=== PATIENT | female | born 1975 | race Caucasian/White ===

== ENCOUNTER → 2017-01-07 | Outpatient (CLI) | payer OTHER ==
--- NOTE | 2017-01-10 11:45 | MM ---
Reason for exam: screening (asymptomatic). History: Family history of breast cancer in paternal aunt at age 50. Taking hormonal contraceptives for 20 years beginning at age 41. Physical Findings: A clinical breast exam by your physician is recommended on an annual basis and results should be correlated with mammographic findings. MG Screening Mammo w CAD Bilateral CC and MLO view(s) were taken. The breast tissue is heterogeneously dense. This may lower the sensitivity of mammography. There is no discrete abnormality. ASSESSMENT: Negative, BI-RAD 1 RECOMMENDATION: Routine screening mammogram of both breasts in 1 year.
== END | disposition home or self-care (01) ==
LOC: RADMAMWWP 13:25
PROVIDERS: ATTEND Obstetrics & Gynecology
DX: Z12.31 Encounter for screening mammogram for malignant neoplasm of breast (principal)

== ENCOUNTER 2018-02-17 11:43 | Inpatient (IN) | payer OTHER ==
[2018-02-17 13:03] LABS: Basophils % (A) 0 %; Eosinophils # (A) 0.7 k/uL (0-0.7); Eosinophils % (A) 3 %; HCT 41.6 % (34.0-46.0); HGB 14.1 gm/dL (11.4-16.0); Lymphocytes # (A) 0.4 k/uL (1.0-4.8); Lymphocytes % (A) 2 %; MCH 32.3 pg (25.0-35.0); MCV 94.9 fL (80.0-100.0); Mean Platelet Volume 7.3; Monocytes # (A) 0.2 k/uL (0-1.0); Monocytes % (A) 1 %; Neutrophils % (A) 94 %; Platelet Count 204 k/uL (150-450); RBC 4.38 m/uL (3.80-5.40); RDW 12.8 % (11.5-15.5); WBC 24.3 k/uL (3.8-10.6)
[2018-02-17] MEDS ORDERED: SODIUM CHLORIDE 0.9% 500 ML 500 ML IV ONE (13:13)
[2018-02-17] MEDS ORDERED: IPRATROPIUM-ALBUTEROL 3 ML NEB INHALATION STA (13:13)
[2018-02-17 13:15] LABS: ALT 22 U/L (9-52); AST 20 U/L (14-36); Alkaline Phosphatase 53 U/L (38-126); Anion Gap 6 mmol/L; Blood Urea Nitrogen 14 mg/dL (7-17); Carbon Dioxide 23 mmol/L (22-30); Chloride 109 mmol/L (98-107); Glucose 114 mg/dL (74-99); Potassium 4.2 mmol/L (3.5-5.1); Sodium 138 mmol/L (137-145); Total Bilirubin 0.9 mg/dL (0.2-1.3); Total Protein 6.6 g/dL (6.3-8.2)
[2018-02-17 13:27] LABS: Creatine Kinase 85 U/L (30-135)
[2018-02-17 13:32] LABS: INR 1.1 (<1.2); Partial Thromboplastin Time 25.3 sec (22.0-30.0); Prothrombin Time 10.4 sec (9.0-12.0)
[2018-02-17 13:39] LABS: Creatine Kinase MB 1.1 ng/mL (0.0-2.4); Troponin I <0.012 ng/mL (0.000-0.034)
--- NOTE | 2018-02-17 13:57 | XR ---
EXAMINATION TYPE: XR chest 2V DATE OF EXAM: 02/17/2018 COMPARISON: NONE HISTORY: Cough,SOB, and weakness. TECHNIQUE: Frontal and lateral views of the chest are obtained. FINDINGS: There is no focal air space opacity, pleural effusion, or pneumothorax seen. The cardiac silhouette size is within normal limits. The osseous structures are intact. IMPRESSION: No acute cardiopulmonary process.
[2018-02-17 14:03] LABS: Appearance,Urine Cloudy (Clear); Bilirubin,Urine Negative (Negative); Blood,Urine Moderate (Negative); Color,Urine Dark Orange; Glucose,Urine (UA) Negative (Negative); Ketones,Urine 1+ (Negative); Leukocyte Esterase,Urine Moderate (Negative); Mucus,Urine Many /hpf; Nitrite,Urine Negative (Negative); PH, Urine 5.5 (5.0-8.0); Protein,Urine 1+ (Negative); RBC,Urine 35 /hpf (0-5); Squamous Epithelial Cell,Urine 1 /hpf (0-4); Urobilinogen,Urine <2.0 mg/dL (<2.0); WBC,Urine 37 /hpf (0-5)
--- NOTE | 2018-02-17 14:51 | CT ---
EXAMINATION TYPE: CT chest angio for PE DATE OF EXAM: 02/17/2018 COMPARISON: None HISTORY: Difficulty breathing CT DLP: 228.6 mGycm CONTRAST: CT chest with contrast and 3D reconstruction with MIP imaging is performed with IV Contrast, patient injected with 100 mL of Isovue 370. Contrast-enhanced CT of the chest was performed through the course of the pulmonary arteries with mihai g and mediastinal window settings submitted. 3D reconstruction with MIP imaging was also performed. PULMONARY ARTERIES: The pulmonary arteries and their major tributaries are patent. I do not see ulises dence for sizable filling defect to suggest pulmonary embolic process. LUNGS: The lungs are clear and free of airspace infiltrate. Scattered nonspecific groundglass infiltr ates noted which may reflect acute inflammatory process. No evidence for atelectasis. No pulmonary nodule or mass is detected. No pleural effusion. MEDIASTINUM: Thoracic aorta is of normal caliber,however, evaluation is limited given timing of the contrast bolus. If there is concern for thoracic aortic pathology consider BRANDY. Correlate clinicall y . The heart is not enlarged. No evidence for mediastinal mass. No mediastinal lymph nodes greater than 1cm. HILAR STRUCTURES: No evidence for mass. No hilar lymph nodes greater than 1 cm. UPPER ABDOMEN: No significant abnormality is seen. IMPRESSION: 1. No evidence for Pulmonary embolism at this time. 2.Scattered nonspecific groundglass infiltrates noted which may reflect acute inflammatory process.
[2018-02-17] MEDS ORDERED: LEVOFLOXACIN 750MG-D5W PMX 750 MG in DEXTROSE/WATER 1 150ML.BAG IVPB STA (14:57)
[2018-02-17] MEDS ORDERED: methylPREDNISolone SOD SUCCI 125 MG/2 ML VIAL IV STA (15:03)
--- NOTE | 2018-02-17 15:39 | ED ---
General Adult HPI - General Chief complaint: Shortness of Breath Stated complaint: Sob Time Seen by Provider: 02/17/18 12:15 Source: patient, RN notes reviewed Mode of arrival: ambulatory Limitations: no limitations - History of Present Illness Initial comments: This is a 42-year-old female who was seen at [facility] this morning and was diagnosed with urinary tract infection given Rocephin. Patient states shortly after she was given Rocephin she became short of breath continues to be short of breath that is why she comes in today. Patient denies any fever chills or cough. Patient denies any chest pain palpitations. Patient denies any syncopal episode or near syncopal episode. Patient denies being dizzy. Patient denies headache patient denies any numbness weakness. Patient does complain of dysuria. Patient denies any abdominal pain. Patient denies any nausea vomiting or diarrhea. Patient denies any calf pain or leg swelling. Patient denies being on any control. - Related Data Home Medications Medication Instructions Recorded Confirmed Dextroamphetamine/Amphetamine 30 mg PO DAILY@1700 02/17/18 02/17/18 [Adderall Xr] Ibuprofen [Motrin Ib] 600 mg PO Q6H PRN 02/17/18 02/17/18 Allergies Allergy/AdvReac Type Severity Reaction Status Date / Time No Known Allergies Allergy Verified 02/17/18 14:13 Review of Systems ROS Statement: Those systems with pertinent positive or pertinent negative responses have been documented in the HPI. ROS Other: All systems not noted in ROS Statement are negative. Past Medical History Past Medical History: No Reported History History of Any Multi-Drug Resistant Organisms: None Reported Past Surgical History: Section Past Psychological History: No Psychological Hx Reported Smoking Status: Current every day smoker Past Alcohol Use History: Occasional Past Drug Use History: Marijuana General Exam - General Exam Comments Initial Comments: GENERAL: Patient is well-developed and well-nourished. Patient is nontoxic and well- hydrated and is in mild distress. ENT: Neck is soft and supple. No significant lymphadenopathy is noted. Oropharynx is clear. Moist mucous membranes. Neck has full range of motion without eliciting any pain. EYES: The sclera were anicteric and conjunctiva were pink and moist. Extraocular movements were intact and pupils were equal round and reactive to light. Eyelids were unremarkable. PULMONARY: Unlabored respirations. Good breath sounds bilaterally. No audible rales rhonchi or wheezing was noted. CARDIOVASCULAR: There is a regular rate and rhythm without any murmurs gallops or rubs. ABDOMEN: Soft and nontender with normal bowel sounds. No palpable organomegaly was noted. There is no palpable pulsatile mass. SKIN: Skin is clear with no lesions or rashes and otherwise unremarkable. NEUROLOGIC: Patient is alert and oriented x3. Cranial nerves II through XII are grossly intact. Motor and sensory are also intact. Normal speech, volume and content. Symmetrical smile. MUSCULOSKELETAL: Normal extremities with adequate strength and full range of motion. No lower extremity swelling or edema. No calf tenderness. LYMPHATICS: No significant lymphadenopathy is noted PSYCHIATRIC: Normal psychiatric evaluation. Limitations: no limitations Course Vital Signs 02/17/18 02/17/18 02/17/18 12:15 12:18 13:06 Temperature 98.5 F Pulse Rate 76 Respiratory 16 20 Rate Blood Pressure 101/61 O2 Sat by Pulse 94 L 96 Oximetry 02/17/18 02/17/18 02/17/18 13:08 13:30 13:37 Temperature 98.1 F Pulse Rate 78 77 Respiratory 18 Rate Blood Pressure 113/78 O2 Sat by Pulse 98 98 Oximetry 02/17/18 13:39 Temperature Pulse Rate 83 Respiratory Rate Blood Pressure O2 Sat by Pulse Oximetry Medical Decision Making - Medical Decision Making X-ray showed no acute abnormality. Patient had an elevated d-dimer so I got a CT of the chest it did show a diffuse groundglass appearance consistent with pneumonitis. I was thinking this could be caused from the Rocephin and I started the patient on steroids. I also gave the patient Levaquin for the urinary tract infection. I called Dr. Jauregui he agreed to admit the patient admitted the patient I continue the steroids. And breathing treatments Levaquin I also gave the patient a dose of Diflucan and gave her a nicotine patch. I admitted the patient I wrote admitting orders. - Lab Data Result diagrams: 02/17/18 12:43 02/17/18 12:43 Lab Results 02/17/18 02/17/18 02/17/18 Range/Units 12:43 12:43 12:43 WBC 24.3 H (3.8-10.6) k/uL RBC 4.38 (3.80-5.40) m/uL Hgb 14.1 (11.4-16.0) gm/dL Hct 41.6 (34.0-46.0) % MCV 94.9 (80.0-100.0) fL MCH 32.3 (25.0-35.0) pg MCHC 34.0 (31.0-37.0) g/dL RDW 12.8 (11.5-15.5) % Plt Count 204 (150-450) k/uL Neutrophils % 94 % Lymphocytes % 2 % Monocytes % 1 % Eosinophils % 3 % Basophils % 0 % Neutrophils # 23.0 H (1.3-7.7) k/uL Lymphocytes # 0.4 L (1.0-4.8) k/uL Monocytes # 0.2 (0-1.0) k/uL Eosinophils # 0.7 (0-0.7) k/uL Basophils # 0.0 (0-0.2) k/uL PT (9.0-12.0) sec INR (<1.2) APTT (22.0-30.0) sec D-Dimer (<0.60) mg/L FEU Sodium 138 (137-145) mmol/L Potassium 4.2 (3.5-5.1) mmol/L Chloride 109 H (98-107) mmol/L Carbon Dioxide 23 (22-30) mmol/L Anion Gap 6 mmol/L BUN 14 (7-17) mg/dL Creatinine 0.77 (0.52-1.04) mg/dL Est GFR (CKD-EPI)AfAm >90 (>60 ml/min/1.73 sqM) Est GFR (CKD-EPI)NonAf >90 (>60 ml/min/1.73 sqM) Glucose 114 H (74-99) mg/dL Calcium 9.0 (8.4-10.2) mg/dL Total Bilirubin 0.9 (0.2-1.3) mg/dL AST 20 (14-36) U/L ALT 22 (9-52) U/L Alkaline Phosphatase 53 (38-126) U/L Total Creatine Kinase 85 (30-135) U/L CK-MB (CK-2) 1.1 (0.0-2.4) ng/mL CK-MB (CK-2) Rel Index 1.3 Troponin I <0.012 (0.000-0.034) ng/mL NT-Pro-B Natriuret Pep pg/mL Total Protein 6.6 (6.3-8.2) g/dL Albumin 4.0 (3.5-5.0) g/dL Urine Color Urine Appearance (Clear) Urine pH (5.0-8.0) Ur Specific [place] (1.001-1.035) Urine Protein (Negative) Urine Glucose (UA) (Negative) Urine Ketones (Negative) Urine Blood (Negative) Urine Nitrite (Negative) Urine Bilirubin (Negative) Urine Urobilinogen (<2.0) mg/dL Ur Leukocyte Esterase (Negative) Urine RBC (0-5) /hpf Urine WBC (0-5) /hpf Ur Squamous Epith Cells (0-4) /hpf Urine Mucus (None) /hpf 02/17/18 02/17/18 02/17/18 Range/Units 12:43 12:43 12:43 WBC (3.8-10.6) k/uL RBC (3.80-5.40) m/uL Hgb (11.4-16.0) gm/dL Hct (34.0-46.0) % MCV (80.0-100.0) fL MCH (25.0-35.0) pg MCHC (31.0-37.0) g/dL RDW (11.5-15.5) % Plt Count (150-450) k/uL Neutrophils % % Lymphocytes % % Monocytes % % Eosinophils % % Basophils % % Neutrophils # (1.3-7.7) k/uL Lymphocytes # (1.0-4.8) k/uL Monocytes # (0-1.0) k/uL Eosinophils # (0-0.7) k/uL Basophils # (0-0.2) k/uL PT 10.4 (9.0-12.0) sec INR 1.1 (<1.2) APTT 25.3 (22.0-30.0) sec D-Dimer 0.65 H (<0.60) mg/L FEU Sodium (137-145) mmol/L Potassium (3.5-5.1) mmol/L Chloride (98-107) mmol/L Carbon Dioxide (22-30) mmol/L Anion Gap mmol/L BUN (7-17) mg/dL Creatinine (0.52-1.04) mg/dL Est GFR (CKD-EPI)AfAm (>60 ml/min/1.73 sqM) Est GFR (CKD-EPI)NonAf (>60 ml/min/1.73 sqM) Glucose (74-99) mg/dL Calcium (8.4-10.2) mg/dL Total Bilirubin (0.2-1.3) mg/dL AST (14-36) U/L ALT (9-52) U/L Alkaline Phosphatase (38-126) U/L Total Creatine Kinase (30-135) U/L CK-MB (CK-2) (0.0-2.4) ng/mL CK-MB (CK-2) Rel Index Troponin I (0.000-0.034) ng/mL NT-Pro-B Natriuret Pep 280 pg/mL Total Protein (6.3-8.2) g/dL Albumin (3.5-5.0) g/dL Urine Color Urine Appearance (Clear) Urine pH (5.0-8.0) Ur Specific [place] (1.001-1.035) Urine Protein (Negative) Urine Glucose (UA) (Negative) Urine Ketones (Negative) Urine Blood (Negative) Urine Nitrite (Negative) Urine Bilirubin (Negative) Urine Urobilinogen (<2.0) mg/dL Ur Leukocyte Esterase (Negative) Urine RBC (0-5) /hpf Urine WBC (0-5) /hpf Ur Squamous Epith Cells (0-4) /hpf Urine Mucus (None) /hpf 02/17/18 Range/Units 13:30 WBC (3.8-10.6) k/uL RBC (3.80-5.40) m/uL Hgb (11.4-16.0) gm/dL Hct (34.0-46.0) % MCV (80.0-100.0) fL MCH (25.0-35.0) pg MCHC (31.0-37.0) g/dL RDW (11.5-15.5) % Plt Count (150-450) k/uL Neutrophils % % Lymphocytes % % Monocytes % % Eosinophils % % Basophils % % Neutrophils # (1.3-7.7) k/uL Lymphocytes # (1.0-4.8) k/uL Monocytes # (0-1.0) k/uL Eosinophils # (0-0.7) k/uL Basophils # (0-0.2) k/uL PT (9.0-12.0) sec INR (<1.2) APTT (22.0-30.0) sec D-Dimer (<0.60) mg/L FEU Sodium (137-145) mmol/L Potassium (3.5-5.1) mmol/L Chloride (98-107) mmol/L Carbon Dioxide (22-30) mmol/L Anion Gap mmol/L BUN (7-17) mg/dL Creatinine (0.52-1.04) mg/dL Est GFR (CKD-EPI)AfAm (>60 ml/min/1.73 sqM) Est GFR (CKD-EPI)NonAf (>60 ml/min/1.73 sqM) Glucose (74-99) mg/dL Calcium (8.4-10.2) mg/dL Total Bilirubin (0.2-1.3) mg/dL AST (14-36) U/L ALT (9-52) U/L Alkaline Phosphatase (38-126) U/L Total Creatine Kinase (30-135) U/L CK-MB (CK-2) (0.0-2.4) ng/mL CK-MB (CK-2) Rel Index Troponin I (0.000-0.034) ng/mL NT-Pro-B Natriuret Pep pg/mL Total Protein (6.3-8.2) g/dL Albumin (3.5-5.0) g/dL Urine Color Dark [place] Urine Appearance Cloudy H (Clear) Urine pH 5.5 (5.0-8.0) Ur Specific [place] 1.020 (1.001-1.035) Urine Protein 1+ H (Negative) Urine Glucose (UA) Negative (Negative) Urine Ketones 1+ H (Negative) Urine Blood Moderate H (Negative) Urine Nitrite Negative (Negative) Urine Bilirubin Negative (Negative) Urine Urobilinogen <2.0 (<2.0) mg/dL Ur Leukocyte Esterase Moderate H (Negative) Urine RBC 35 H (0-5) /hpf Urine WBC 37 H (0-5) /hpf Ur Squamous Epith Cells 1 (0-4) /hpf Urine Mucus Many H (None) /hpf Disposition Clinical Impression: Allergic pneumonitis, Urinary tract infection Disposition: ADMITTED IP TO THIS HOSP Referrals: Joe Jauregui MD [Primary Care Provider] - 1-2 days Time of Disposition: 15:38
[2018-02-17] MEDS ORDERED: FLUCONAZOLE 150 MG TAB PO STA (15:40)
[2018-02-17] MEDS ORDERED: IPRATROPIUM-ALBUTEROL 3 ML NEB INHALATION PRN (15:40)
[2018-02-17] MEDS: methylPREDNISolone SOD SUCCI 125 MG/2 ML VIAL IV SCH (18:45)
[2018-02-17] MEDS: NICOTINE 21MG/24HR PATCH TRANSDERM SCH (20:35)
[2018-02-17] MEDS: ACETAMINOPHEN TAB 325 MG TAB PO PRN (21:57)
[2018-02-18] MEDS: methylPREDNISolone SOD SUCCI 125 MG/2 ML VIAL IV SCH ×5 (00:04→23:50)
[2018-02-18] MEDS: SODIUM CHLORIDE 0.9% 1,000 ML IV ONE ×2 (00:13→21:14)
[2018-02-18] MEDS: NICOTINE 21MG/24HR PATCH TRANSDERM SCH (08:35)
[2018-02-18] MEDS ORDERED: NICOTINE 21MG/24HR PATCH TRANSDERM SCH (09:00)
[2018-02-18] MEDS ORDERED: LEVOFLOXACIN 750MG-D5W PMX 750 MG in DEXTROSE/WATER 1 150ML.BAG IVPB SCH (15:00)
[2018-02-18] MEDS: ACETAMINOPHEN TAB 325 MG TAB PO PRN ×2 (17:08→22:22)
[2018-02-19 00:06] VITALS: TEMP 98
[2018-02-19] MEDS: methylPREDNISolone SOD SUCCI 125 MG/2 ML VIAL IV SCH (06:19)
[2018-02-19] MEDS: NICOTINE 21MG/24HR PATCH TRANSDERM SCH (07:59)
[2018-02-19 08:30] VITALS: BP 121/65; PULSE 52; RESP 18
[2018-02-19 08:33] LABS: Anion Gap 5 mmol/L; Blood Urea Nitrogen 23 mg/dL (7-17); Calcium 9.1 mg/dL (8.4-10.2); Carbon Dioxide 22 mmol/L (22-30); Chloride 114 mmol/L (98-107); Glucose 133 mg/dL (74-99); Potassium 4.8 mmol/L (3.5-5.1); Sodium 141 mmol/L (137-145)
[2018-02-19 09:08] LABS: Basophils % (A) 0 %; Eosinophils % (A) 0 %; HCT 37.5 % (34.0-46.0); HGB 11.8 gm/dL (11.4-16.0); Lymphocytes # (A) 1.2 k/uL (1.0-4.8); Lymphocytes % (A) 5 %; MCHC 31.5 g/dL (31.0-37.0); MCV 98.2 fL (80.0-100.0); Mean Platelet Volume 7.7; Monocytes # (A) 0.4 k/uL (0-1.0); Monocytes % (A) 2 %; Neutrophils # (A) 21.7 k/uL (1.3-7.7); Neutrophils % (A) 93 %; Platelet Count 234 k/uL (150-450); RBC 3.82 m/uL (3.80-5.40); RDW 13.1 % (11.5-15.5); WBC 23.4 k/uL (3.8-10.6)
--- NOTE | 2018-02-19 09:46 | P.HPIM ---
History of Present Illness H&P Date: 02/18/18 This is a 42-year-old female who was seen at [facility] this morning and was diagnosed with urinary tract infection given Rocephin. Patient states shortly after she was given Rocephin she became short of breath continues to be short of breath that is why she comes in today. Patient denies any fever chills or cough. Patient denies any chest pain palpitations. Patient denies any syncopal episode or near syncopal episode. Patient denies being dizzy. Patient denies headache patient denies any numbness weakness. Patient does complain of dysuria. Patient denies any abdominal pain. Patient denies any nausea vomiting or diarrhea. Patient denies any calf pain or leg swelling. Patient denies being on any control. Review of Systems Constitutional: Denies chills, Denies fever Eyes: denies blurred vision Ears, nose, mouth and throat: Denies nasal congestion, Denies sore throat Cardiovascular: Reports shortness of breath, Denies chest pain, Denies rapid heart beat Respiratory: Reports wheezing, Denies cough, Denies hemoptysis Gastrointestinal: Denies abdominal pain, Denies nausea, Denies vomiting Genitourinary: Reports dysuria, Denies flank pain, Denies hematuria Musculoskeletal: Reports as per HPI Integumentary: Denies darkening of skin, Denies rash Neurological: Denies confusion, Denies headaches, Denies visual changes Endocrine: Denies cold intolerance, Denies heat intolerance, Denies polydipsia, Denies polyuria Hematologic/Lymphatic: Denies easy bruising, Denies lymphedema Allergic/Immunologic: Denies angioedema Past Medical History Past Medical History: No Reported History History of Any Multi-Drug Resistant Organisms: None Reported Past Surgical History: Section Additional Past Anesthesia/Blood Transfusion Reaction / Comment(s): NEVER HAD BLOOD TRANSFUSION Past Psychological History: No Psychological Hx Reported Smoking Status: Current every day smoker Past Alcohol Use History: Occasional Past Drug Use History: Marijuana - Past Family History Mother Family Medical History: COPD Father Family Medical History: Prostate Disorder Medications and Allergies Home Medications Medication Instructions Recorded Confirmed Type Dextroamphetamine/Amphetamine 30 mg PO DAILY@1700 02/17/18 02/17/18 History [Adderall Xr] Ibuprofen [Motrin Ib] 600 mg PO Q6H PRN 02/17/18 02/17/18 History Allergies Allergy/AdvReac Type Severity Reaction Status Date / Time ceftriaxone [From Rocephin] AdvReac Unknown Verified 02/17/18 18:30 Physical Exam Vitals: Vital Signs Temp Pulse Pulse Resp BP BP Pulse Ox 02/18/18 08:15 98.1 F 75 16 112/71 98 02/18/18 00:00 80 16 02/17/18 23:00 98.1 F 79 16 107/62 96 02/17/18 21:57 98.4 F 80 16 98/61 96 02/17/18 20:51 76 16 02/17/18 17:10 98.0 F 76 16 117/65 95 02/17/18 15:39 99.2 F 69 18 111/71 97 02/17/18 14:00 84 12 113/77 98 02/17/18 13:39 83 02/17/18 13:37 77 18 113/78 98 02/17/18 13:30 78 02/17/18 13:08 98.1 F 98 02/17/18 13:06 20 02/17/18 12:18 101/61 96 02/17/18 12:15 98.5 F 76 16 94 L Intake and Output 02/17/18 02/18/18 02/18/18 22:59 06:59 14:59 Intake Total 600 Output Total 200 400 Balance 400 -400 Intake: Oral 600 Output: Urine 200 400 Other: Voiding Method Toilet Toilet # Voids 1 450 Weight 66.8 kg - Constitutional General appearance: Present: average body habitus, cooperative, no acute distress - EENT Eyes: Present: anicteric sclerae, EOMI, PERRLA, normal appearance ENT: Present: hearing grossly normal, normal oropharynx Ears: bilateral: normal - Neck Neck: Present: normal ROM. Absent: lymphadenopathy, rigidity, thyromegaly Carotids: negative: bruit present Thyroid: bilateral: normal size, negative: enlarged, nodule - Respiratory Respiratory: bilateral: wheezing - Cardiovascular Rhythm: regular Heart sounds: normal: S1, S2 Abnormal Heart Sounds: Absent: systolic murmur, diastolic murmur - Gastrointestinal General gastrointestinal: Present: normal bowel sounds, soft. Absent: distended , organomegaly, tenderness - Genitourinary Genitourinary Comment(s): deferred - Integumentary Integumentary: Present: normal turgor. Absent: jaundiced, rash, ulcer - Neurologic Neurologic: Present: CNII-XII intact. Absent: focal deficits - Musculoskeletal Musculoskeletal: Present: gait normal, strength equal bilaterally - Psychiatric Psychiatric: Present: A&O x's 3, appropriate affect, intact judgment & insight Results CBC & Chem 7: 02/19/18 07:52 02/19/18 07:52 Labs: Abnormal Lab Results - Last 24 Hours (Table) 02/17/18 02/17/18 02/17/18 Range/Units 12:43 12:43 12:43 WBC 24.3 H (3.8-10.6) k/uL Neutrophils # 23.0 H (1.3-7.7) k/uL Lymphocytes # 0.4 L (1.0-4.8) k/uL D-Dimer 0.65 H (<0.60) mg/L FEU Chloride 109 H (98-107) mmol/L Glucose 114 H (74-99) mg/dL Urine Appearance (Clear) Urine Protein (Negative) Urine Ketones (Negative) Urine Blood (Negative) Ur Leukocyte Esterase (Negative) Urine RBC (0-5) /hpf Urine WBC (0-5) /hpf Urine Mucus (None) /hpf 02/17/18 Range/Units 13:30 WBC (3.8-10.6) k/uL Neutrophils # (1.3-7.7) k/uL Lymphocytes # (1.0-4.8) k/uL D-Dimer (<0.60) mg/L FEU Chloride (98-107) mmol/L Glucose (74-99) mg/dL Urine Appearance Cloudy H (Clear) Urine Protein 1+ H (Negative) Urine Ketones 1+ H (Negative) Urine Blood Moderate H (Negative) Ur Leukocyte Esterase Moderate H (Negative) Urine RBC 35 H (0-5) /hpf Urine WBC 37 H (0-5) /hpf Urine Mucus Many H (None) /hpf Thrombosis Risk Factor Assmnt - Choose All That Apply Each Factor Represents 1 point: Obesity (BMI >25) Other Risk Factors: No Other congenital or acquired thrombophilia - If yes, enter type in comment: No Thrombosis Risk Factor Assessment Total Risk Factor Score: 1 Thrombosis Risk Factor Assessment Level: Low Risk Assessment and Plan Assessment: 1. Anaphylaxis - Possibly secondary to IV Rocephin used for possible UTI - Patient is started on IV Solu-Medrol 60 mg every 6 hours - We will use Benadryl if patient continues to be short of breath 2. UTI - Patient started on Levaquin 750 mg IV daily - We will continue with current dose of Levaquin till final urine culture report is available 3. ALLERGIC pneumonitis - Levaquin 750 mg IV every 24 hours - We will continue with bronchodilator nebulizer treatment as needed - Solu-Medrol 60 mg IV every 6 hours 4. Tobacco abuse - Counseling done for patient to quit smoking - Nicotine patch 21 MG per 24 hours 5. DVT prophylaxis; early ambulation CODE STATUS; full code Time with Patient: Greater than 30
== END 2018-02-19 11:00 | disposition home or self-care (01) | DRG 916 ==
LOC: EC 11:43 → 6PED 15:39
PROVIDERS: ADMIT Family Medicine; ATTEND Family Medicine
DX: T88.6XXA Anaphylactic reaction due to adverse effect of correct drug or medicament properly administered, initial encounter (principal); J67.8 Hypersensitivity pneumonitis due to other organic dusts; N39.0 Urinary tract infection, site not specified; T36.1X5A Adverse effect of cephalosporins and other beta-lactam antibiotics, initial encounter; F17.210 Nicotine dependence, cigarettes, uncomplicated; Z71.6 Tobacco abuse counseling; Z82.5 Family history of asthma and other chronic lower respiratory diseases; Z79.899 Other long term (current) drug therapy
CPT/HCPCS: 36415; 71046; 71275; 80048; 80053; 81001; 82550; 82553; 83605; 83880; 84484; 85025; 85379; 85610; 85730; 87040; 94640

== ENCOUNTER → 2018-12-27 | Outpatient (CLI) | payer OTHER ==
--- NOTE | 2018-12-27 13:28 | US ---
EXAMINATION TYPE: US pelvic complete DATE OF EXAM: 12/27/2018 COMPARISON: NONE CLINICAL HISTORY: Pelvice Pain R10.2. Pain heavy periods. TECHNIQUE: Transabdominal (TA Date of LMP: 12/01/2018 EXAM MEASUREMENTS: Uterus: 9.4 x 3.7 x 4.3 cm Endometrial Stripe: .9 cm Right Ovary: 3.2 x 2.6 x 2.0 cm Left Ovary: 1.8 x .9 x 1.3 cm 1. Uterus: Anteverted wnl 2. Endometrium: wnl 3. Right Ovary: Follicle seen 1.5 cm. 4. Left Ovary: wnl 5. Bilateral Adnexa: wnl 6. Posterior cul-de-sac: wnl IMPRESSION: Dominant follicle right ovary.
== END | disposition home or self-care (01) ==
LOC: RADUSWWP 12:45
PROVIDERS: ATTEND Family Medicine
DX: N83.01 Follicular cyst of right ovary (principal)
CPT/HCPCS: 76856

== ENCOUNTER 2019-01-22 07:54 | Emergency (ER) | payer OTHER ==
[2019-01-22 08:06] VITALS: RESP 18; TEMP 98.2
[2019-01-22] MEDS ORDERED: SODIUM CHLORIDE 0.9% 500 ML 500 ML IV STA (08:33)
[2019-01-22] MEDS ORDERED: METOCLOPRAMIDE 5 MG/ML 2 ML VIAL IVP STA (08:34)
[2019-01-22] MEDS ORDERED: MECLIZINE 12.5 MG TAB PO STA (08:34)
--- NOTE | 2019-01-22 08:36 | ED ---
General Adult HPI - General Chief complaint: Dizziness Stated complaint: Dizziness Time Seen by Provider: 01/22/19 08:16 Source: patient, RN notes reviewed Mode of arrival: ambulatory Limitations: no limitations - History of Present Illness Initial comments: Patient is a pleasant 43-year-old female presenting to the emergency Department with complaints of dizziness. Onset of symptoms was yesterday morning. Symptoms were sudden onset. Symptoms seemed to improve several times however have worsened again following that. Symptoms have been fairly steady since last night. Patient feels a spinning type sensation. Symptoms significantly worsen with upright position and head movement. No history of similar symptoms previously. No speech problems. No weakness or confusion. No fever. No headache. - Related Data Home Medications Medication Instructions Recorded Confirmed Dextroamphetamine/Amphetamine 30 mg PO DAILY 02/17/18 01/22/19 [Adderall Xr] Allergies Allergy/AdvReac Type Severity Reaction Status Date / Time ceftriaxone [From Rocephin] Allergy Unknown Verified 01/22/19 08:39 Review of Systems ROS Statement: Those systems with pertinent positive or pertinent negative responses have been documented in the HPI. ROS Other: All systems not noted in ROS Statement are negative. Constitutional: Denies: fever Eyes: Denies: eye pain ENT: Denies: ear pain Respiratory: Denies: cough Cardiovascular: Denies: chest pain Endocrine: Denies: fatigue Gastrointestinal: Reports: nausea (Patient does have some associated nausea). Denies: abdominal pain Genitourinary: Denies: dysuria Musculoskeletal: Denies: back pain Skin: Denies: rash Neurological: Reports: vertigo. Denies: headache Past Medical History Past Medical History: No Reported History History of Any Multi-Drug Resistant Organisms: None Reported Past Surgical History: Section Additional Past Anesthesia/Blood Transfusion Reaction / Comment(s): NEVER HAD BLOOD TRANSFUSION Past Psychological History: No Psychological Hx Reported Smoking Status: Current every day smoker Past Alcohol Use History: Occasional Past Drug Use History: Marijuana - Past Family History Mother Family Medical History: COPD Father Family Medical History: Prostate Disorder General Exam Limitations: no limitations General appearance: alert, in no apparent distress Head exam: Present: atraumatic, normocephalic Eye exam: Present: normal appearance, PERRL, EOMI. Absent: nystagmus ENT exam: Present: normal oropharynx, TM's normal bilaterally Neck exam: Present: normal inspection. Absent: meningismus Respiratory exam: Present: normal lung sounds bilaterally Cardiovascular Exam: Present: regular rate, normal rhythm GI/Abdominal exam: Present: soft. Absent: tenderness, guarding Extremities exam: Present: normal inspection Neurological exam: Present: alert, oriented X3, CN II-XII intact. Absent: motor sensory deficit Expanded Neurological exam: Present: protecting the airway Speech: Present: fluid speech Cranial nerves: EOM's Intact: Normal Cerebellar function: Finger to Nose: Normal Sensory exam: Upper Extremity Light Touch: Normal, Lower Extremity Light Touch: Normal Motor strength exam: RUE: 5, LUE: 5, RLE: 5, LLE: 5 Eye Response: (4) open spontaneously Motor Response: (6) obeys commands Verbal Response: (5) oriented Psychiatric exam: Present: normal affect, normal mood Skin exam: Present: normal color Course Vital Signs 01/22/19 01/22/19 01/22/19 08:02 10:11 11:39 Temperature 98.2 F Pulse Rate 77 61 59 L Respiratory 18 18 18 Rate Blood Pressure 140/90 120/82 117/87 O2 Sat by Pulse 99 100 100 Oximetry 01/22/19 12:12 Temperature Pulse Rate 64 Respiratory 18 Rate Blood Pressure 122/85 O2 Sat by Pulse 98 Oximetry EKG Findings - EKG Comments: EKG Findings:: Sinus bradycardia 52. MT 136. QRS 80. QT 514. QTC 470. Normal axis. Normal QRS. No acute ST change. Medical Decision Making - Medical Decision Making Patient reevaluated and feeling much better. Patient is able to get up and walk around emergency department without any difficulty. Patient updated on results and need for follow-up. - Lab Data Result diagrams: 01/22/19 09:02 01/22/19 09:02 Lab Results 01/22/19 01/22/19 01/22/19 Range/Units 09:02 09:02 11:40 WBC 6.2 (3.8-10.6) k/uL RBC 4.54 (3.80-5.40) m/uL Hgb 14.8 (11.4-16.0) gm/dL Hct 45.2 (34.0-46.0) % MCV 99.6 (80.0-100.0) fL MCH 32.6 (25.0-35.0) pg MCHC 32.7 (31.0-37.0) g/dL RDW 13.1 (11.5-15.5) % Plt Count 230 (150-450) k/uL Neutrophils % 65 % Lymphocytes % 25 % Monocytes % 5 % Eosinophils % 3 % Basophils % 1 % Neutrophils # 4.0 (1.3-7.7) k/uL Lymphocytes # 1.6 (1.0-4.8) k/uL Monocytes # 0.3 (0-1.0) k/uL Eosinophils # 0.2 (0-0.7) k/uL Basophils # 0.1 (0-0.2) k/uL PT 10.5 (9.0-12.0) sec INR 1.0 (<1.2) APTT 25.5 (22.0-30.0) sec Sodium 140 (137-145) mmol/L Potassium 4.1 (3.5-5.1) mmol/L Chloride 110 H (98-107) mmol/L Carbon Dioxide 23 (22-30) mmol/L Anion Gap 7 mmol/L BUN 20 H (7-17) mg/dL Creatinine 0.87 (0.52-1.04) mg/dL Est GFR (CKD-EPI)AfAm >90 (>60 ml/min/1.73 sqM) Est GFR (CKD-EPI)NonAf 83 (>60 ml/min/1.73 sqM) Glucose 91 (74-99) mg/dL Calcium 9.2 (8.4-10.2) mg/dL Total Bilirubin 0.8 (0.2-1.3) mg/dL AST 24 (14-36) U/L ALT 22 (9-52) U/L Alkaline Phosphatase 52 (38-126) U/L Total Protein 6.5 (6.3-8.2) g/dL Albumin 3.9 (3.5-5.0) g/dL - Radiology Data Radiology results: image reviewed (Computed tomography scan the brain reveals no acute process) Disposition Clinical Impression: Vertigo Disposition: HOME SELF-CARE Condition: Stable Instructions (If sedation given, give patient instructions): Dizziness (ED) Additional Instructions: Please follow-up with primary care physician in the next couple days for recheck. Also follow-up with ENT and neurology. Return for increased dizz iness, weakness, confusion, vomiting, worsening symptoms or other concerns. [id number] Antivert as needed. Is patient prescribed a controlled substance at d/c from ED?: No Referrals: Raymond Lebron MD [Primary Care Provider] - 1-2 days Time of Disposition: 13:38
[2019-01-22 09:15] LABS: Basophils # (A) 0.1 k/uL (0-0.2); Basophils % (A) 1 %; Eosinophils # (A) 0.2 k/uL (0-0.7); Eosinophils % (A) 3 %; HCT 45.2 % (34.0-46.0); HGB 14.8 gm/dL (11.4-16.0); Lymphocytes # (A) 1.6 k/uL (1.0-4.8); Lymphocytes % (A) 25 %; MCH 32.6 pg (25.0-35.0); MCHC 32.7 g/dL (31.0-37.0); MCV 99.6 fL (80.0-100.0); Mean Platelet Volume 7.4; Monocytes # (A) 0.3 k/uL (0-1.0); Monocytes % (A) 5 %; Neutrophils % (A) 65 %; Platelet Count 230 k/uL (150-450); RBC 4.54 m/uL (3.80-5.40); RDW 13.1 % (11.5-15.5); WBC 6.2 k/uL (3.8-10.6)
[2019-01-22 09:25] LABS: ALT 22 U/L (9-52); AST 24 U/L (14-36); African American GFR (CKD) >90 (>60 ml/min/1.73 sqM); Albumin 3.9 g/dL (3.5-5.0); Alkaline Phosphatase 52 U/L (38-126); Anion Gap 7 mmol/L; Blood Urea Nitrogen 20 mg/dL (7-17); Calcium 9.2 mg/dL (8.4-10.2); Carbon Dioxide 23 mmol/L (22-30); Chloride 110 mmol/L (98-107); Glucose 91 mg/dL (74-99); Potassium 4.1 mmol/L (3.5-5.1); Sodium 140 mmol/L (137-145); Total Bilirubin 0.8 mg/dL (0.2-1.3); Total Protein 6.5 g/dL (6.3-8.2)
--- NOTE | 2019-01-22 09:40 | CT ---
EXAMINATION TYPE: CT brain wo con DATE OF EXAM: 01/22/2019 COMPARISON: MRI brain 10/27/2010 HISTORY: Dizziness CT DLP: 1032.4 mGycm. Automated Exposure Control for Dose Reduction was Utilized. TECHNIQUE: CT scan of the head is performed without contrast. FINDINGS: There is no acute intracranial hemorrhage, mass effect, or midline shift identified. The ventricles and sulci are within normal limits in size. The globes are intact and the visualized sin uses are clear. Mild inferior cerebellar tonsillar ectopia noted. IMPRESSION: No acute intracranial hemorrhage, mass effect, or midline shift is seen. Additional find ings above.
[2019-01-22] MEDS ORDERED: SCOPOLAMINE 1.5MG/72HR PATCH TRANSDERM STA (11:49)
[2019-01-22] MEDS ORDERED: DIAZEPAM 5 MG/ML 2 ML INJ IVP STA (11:50)
[2019-01-22 11:57] LABS: Partial Thromboplastin Time 25.5 sec (22.0-30.0); Prothrombin Time 10.5 sec (9.0-12.0)
[2019-01-22 12:12] VITALS: BP 122/85; PULSE 64
== END 2019-01-22 13:57 | disposition home or self-care (01) ==
LOC: EC 07:54
DX: R42 Dizziness and giddiness (principal); F17.200 Nicotine dependence, unspecified, uncomplicated; Z88.1 Allergy status to other antibiotic agents
CPT/HCPCS: 36415; 93005; 80053; 85025; 85610; 85730; 70450; 99284; 96374; 96375; 96361; J2765; J3360

== ENCOUNTER 2019-05-13 13:30 | Emergency (ER) | payer OTHER ==
[2019-05-13 13:38] VITALS: TEMP 98.2
[2019-05-13] MEDS ORDERED: MORPHINE SULFATE 4 MG/ML SYRINGE IV STA (14:20)
[2019-05-13] MEDS ORDERED: LIDOCAINE/EPINEPHR/TETRACAINE 5 ML BOTTLE TOPICAL ONE (14:20)
--- NOTE | 2019-05-13 14:27 | ED ---
General Adult HPI - General Chief complaint: Skin/Abscess/Foreign Body Stated complaint: abscess on groin Time Seen by Provider: 05/13/19 14:01 Source: patient, RN notes reviewed, old records reviewed Mode of arrival: ambulatory Limitations: no limitations - History of Present Illness Initial comments: 44-year-old female patient brought in to ED for evaluation of Bartholin abscess. Patient reports that has been ongoing for approximately 3 weeks. She reports that she has had recent past however they've never required drainage. She reports that she went to a hospital in [place] approximately 1 week ago where they placed on Bactrim but did not do an incision and drainage procedure. Complains of localized vaginal pain and discomfort in area of abscess. Denies any systemic symptoms. Denies any fevers chills, nausea vomiting or diarrhea. Systemic: Pt denies fatigue, fever/chills, rash. Pt denies weakness, night sweats, weight loss. Neuro: Pt denies headache, visual disturbances, syncope or pre-syncope. HEENT: Pt denies ocular discharge or irritation, otalgia, rhinorrhea, pharyngitis or notable lymphadenopathy. Cardiopulmonary: Pt denies chest pain, SOB, heart palpitations, dyspnea on exertion. Abdominal/GI: Pt denies abdominal pain, n/v/d. : Pt denies dysuria, burning w/ urination, frequency/urgency. Denies new onset urinary or bowel incontinence. MSK: Pt denies myalgia, loss of strength or function in extremities. Neuro: Pt denies new onset weakness, paresthesias. - Related Data Home Medications Medication Instructions Recorded Confirmed Dextroamphetamine/Amphetamine 30 mg PO DAILY 02/17/18 01/22/19 [Adderall Xr] Allergies Allergy/AdvReac Type Severity Reaction Status Date / Time ceftriaxone [From Rocephin] Allergy Unknown Verified 05/13/19 13:38 nitrofurantoin Allergy Unknown Verified 05/13/19 13:38 [From Macrobid] Review of Systems ROS Statement: Those systems with pertinent positive or pertinent negative responses have been documented in the HPI. ROS Other: All systems not noted in ROS Statement are negative. Past Medical History Past Medical History: No Reported History History of Any Multi-Drug Resistant Organisms: None Reported Past Surgical History: Section Additional Past Anesthesia/Blood Transfusion Reaction / Comment(s): NEVER HAD BLOOD TRANSFUSION Past Psychological History: ADD/ADHD Smoking Status: Current every day smoker Past Alcohol Use History: Occasional Past Drug Use History: Marijuana - Past Family History Mother Family Medical History: COPD Father Family Medical History: Prostate Disorder General Exam - General Exam Comments Initial Comments: Constitutional: NAD, AOX3, Pt has pleasant affect. HEENT: NC/AT, trachea midline, neck supple, no lymphadenopathy. Posterior pharynx non erythematous, without exudates. External ears appear normal, without discharge. Mucous membranes moist. Eyes PERRLA, EOM intact. There is no scleral icterus. No pallor noted. Cardiopulmonary: RRR, no murmurs, rubs or gallops, no JVD noted. Lungs CTAB in anterior and posterior harper. No peripheral edema. Abdominal exam: Abdomen soft and non-distended. Abdomen non-tender to palpation in all 4 quadrants. Bowel sounds active in LLQ. No hepatosplenomegaly. No ecchymosis Neuro: CN II-XII grossly intact. No nuchal rigidity. No raccon eyes, no dial sign, no hemotympanum. No cervical spinal tenderness. MSK: No posterior calf tenderness bilaterally, homans sign negative bilaterally. Posterior tibialis and radial pulse +2 bilaterally. Sensation intact in upper and lower extremities. Full active ROM in upper and lower extremities, 5/5 st regnth. : Right labial Bartholin abscess noted approximately 6 x 3 cm. incision drainage performed displayed a significant amount of purulent material. Culture obtained. Word catheter placed. Limitations: no limitations Course Vital Signs 05/13/19 13:36 Temperature 98.2 F Pulse Rate 90 Respiratory 18 Rate Blood Pressure 117/63 O2 Sat by Pulse 98 Oximetry Procedures - Incision & Drainage Consent Obtained: verbal consent Indication: Bartholin abscess Site: vulva/vagina Size (cm): 6 Anesthetic Used: lidocaine 1% Amount (mLs): 2 I&D Cleaning Method: Alcohol Wipe Sterile Field Used?: Yes Scalpel Used: #11 I&D Drainage Obtained: Pus Culture Obtained?: Yes Patient Tolerated Procedure: well Medical Decision Making - Medical Decision Making 44-year-old female patient with the chief complaint of Bartholin's abscess. Reports has been getting worse for approximately 3 weeks. She was started on Bactrim approximately 3 days ago however did not have incision and drainage procedure performed. Denies any systemic symptoms of infection. Denies any concern for STI. Patient vital signs are stable, afebrile. Physical exam did display a abscess approximately 6 x 3 cm. Incision and drainage was performed displayed purulent drainage. Culture was obtained. Wurd catheter was placed. Patient will be continued on Bactrim she has approximately 1 week left. Will follow-up with primary care provider and will follow up with her previous establish [employer]. Instructed on Word catheter, return precautions. Case discussed with Dr. Kaiser. - Lab Data Lab Results 05/13/19 05/13/19 Range/Units 14:50 14:50 Urine Color Yellow Urine Appearance Cloudy H (Clear) Urine pH 6.0 (5.0-8.0) Ur Specific [place] 1.025 (1.001-1.035) Urine Protein Trace H (Negative) Urine Glucose (UA) Negative (Negative) Urine Ketones Trace H (Negative) Urine Blood Negative (Negative) Urine Nitrite Negative (Negative) Urine Bilirubin Negative (Negative) Urine Urobilinogen <2.0 (<2.0) mg/dL Ur Leukocyte Esterase Negative (Negative) Urine RBC 1 (0-5) /hpf Urine WBC 2 (0-5) /hpf Ur Squamous Epith Cells 7 H (0-4) /hpf Urine Mucus Occasional H (None) /hpf Urine HCG, Qual Not Detected (Not Detectd) Disposition Clinical Impression: Bartholin cyst Disposition: HOME SELF-CARE Condition: Stable Instructions (If sedation given, give patient instructions): Bartholin Cyst (ED), Incision and Drainage (ED) Additional Instructions: Use word catheter as directed. Leave in until it falls out, do not leave in longer than 1 month. Complete antibiotics as directed. Follow up with PCP and day care supervisor tomorrow. Return to ER if condition worsens in anyway, or if you develop fever, nausea vomiting or systemic symptoms. Is patient prescribed a controlled substance at d/c from ED?: No Referrals: Raymond Lebron MD [Primary Care Provider] - 1-2 days
[2019-05-13] MEDS ORDERED: MORPHINE SULFATE 4 MG/ML SYRINGE IM STA ×2 (14:42→15:51)
[2019-05-13 15:14] LABS: Appearance,Urine Cloudy (Clear); Bilirubin,Urine Negative (Negative); Blood,Urine Negative (Negative); Color,Urine Yellow; Glucose,Urine (UA) Negative (Negative); Ketones,Urine Trace (Negative); Leukocyte Esterase,Urine Negative (Negative); Mucus,Urine Occasional /hpf; Nitrite,Urine Negative (Negative); Protein,Urine Trace (Negative); RBC,Urine 1 /hpf (0-5); Specific Gravity,Urine 1.025 (1.001-1.035); Squamous Epithelial Cell,Urine 7 /hpf (0-4); Urobilinogen,Urine <2.0 mg/dL (<2.0); WBC,Urine 2 /hpf (0-5)
[2019-05-13] MEDS ORDERED: LIDOCAINE 1% INJ 10MG/ML (20 ML MDV) SQ STA (16:21)
[2019-05-13] MEDS ORDERED: ACET/COD 300 MG/30 MG STARTER PACK 6 TAB BTL PO STA (17:17)
[2019-05-13 17:32] VITALS: BP 133/84; PULSE 87; RESP 16
== END 2019-05-13 17:34 | disposition home or self-care (01) ==
LOC: EC 13:30
DX: N75.0 Cyst of Bartholin's gland (principal); F90.9 Attention-deficit hyperactivity disorder, unspecified type; F17.200 Nicotine dependence, unspecified, uncomplicated; Z79.899 Other long term (current) drug therapy; Z88.1 Allergy status to other antibiotic agents
CPT/HCPCS: 81001; 81025; 87070; 87205; 99284; 96372 ×2; 56420; J2270; J2001

== ENCOUNTER 2019-05-18 14:05 | Emergency (ER) | payer OTHER ==
[2019-05-18 14:14] VITALS: PULSE 74; RESP 18
[2019-05-18] MEDS ORDERED: HYDROmorphone 1 MG/ML 1 ML SYRINGE IVP STA (14:28)
[2019-05-18] MEDS ORDERED: DIPH,PERTUS(ACELL)TETVAC-LF 0.5 ML VIAL IM ONE (14:28)
[2019-05-18] MEDS ORDERED: LIDOCAINE 1% INJ 10MG/ML (20 ML MDV) SQ ONE (14:32)
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
[2019-05-18 21:07] VITALS: BP 127/78; TEMP 96.8
== END 2019-05-18 16:55 | disposition home or self-care (01) ==
LOC: EC 14:05
DX: S01.81XA Laceration without foreign body of other part of head, initial encounter (principal); S02.2XXA Fracture of nasal bones, initial encounter for closed fracture; S80.02XA Contusion of left knee, initial encounter; S80.01XA Contusion of right knee, initial encounter; S60.229A Contusion of unspecified hand, initial encounter; Z23 Encounter for immunization; F90.9 Attention-deficit hyperactivity disorder, unspecified type; F17.200 Nicotine dependence, unspecified, uncomplicated; Z79.899 Other long term (current) drug therapy; Z88.1 Allergy status to other antibiotic agents; V43.62XA Car passenger injured in collision with other type car in traffic accident, initial encounter; Y92.410 Unspecified street and highway as the place of occurrence of the external cause
CPT/HCPCS: 73130; 72125; 70486; 70450; 90715; 99285; 12011; 90471; 96374; J2001; J1170

== ENCOUNTER 2019-11-28 12:27 | Emergency (ER) | payer OTHER ==
[2019-11-28] MEDS ORDERED: LIDOCAINE 1% INJ 10MG/ML (20 ML MDV) SQ ONE (13:18)
[2019-11-28] MEDS ORDERED: LIDOCAINE/EPINEPHR/TETRACAINE 5 ML BOTTLE TOPICAL ONE (13:18)
[2019-11-28] MEDS ORDERED: HYDROcodone/APAP 5-325MG 1 EACH TAB PO STA (13:43)
--- NOTE | 2019-11-28 14:09 | ED ---
Skin/Abscess/FB HPI - General Chief complaint: Skin/Abscess/Foreign Body Stated complaint: Cyst in vaginal area Time Seen by Provider: 11/28/19 12:39 Source: patient, RN notes reviewed, old records reviewed Mode of arrival: ambulatory Limitations: no limitations - History of Present Illness Initial comments: Pt is a 44 year old female, presents today for concern for left sided bartholin gland abscess that has been present for the past week. Patient reports this her second one this year. Patient denies fevers or chills. Patient denies vaginal discharge. LMP was 2 weeks ago. OBGYN is Dr. Raymond. - Related Data Home Medications Medication Instructions Recorded Confirmed Dextroamphetamine/Amphetamine 30 mg PO DAILY 02/17/18 11/28/19 [Adderall Xr] Bactrim (Unknown Dose) 1 tab PO ONCE 11/28/19 11/28/19 Previous Rx's Medication Instructions Recorded Acetaminophen-Codeine 300-30mg 1 tab PO Q6H PRN 3 Days #12 tablet 11/28/19 [Tylenol w/codeine #3] Sulfamethox-Tmp 800-160Mg [Bactrim 2 tab PO Q12HR #40 tab 11/28/19 DS 800-160 mg] Allergies Allergy/AdvReac Type Severity Reaction Status Date / Time ceftriaxone [From Rocephin] Allergy Unknown Verified 11/28/19 13:40 nitrofurantoin Allergy Unknown Verified 11/28/19 13:40 [From Macrobid] Review of Systems ROS Statement: Those systems with pertinent positive or pertinent negative responses have been documented in the HPI. ROS Other: All systems not noted in ROS Statement are negative. Past Medical History Past Medical History: No Reported History History of Any Multi-Drug Resistant Organisms: None Reported Past Surgical History: Section Additional Past Anesthesia/Blood Transfusion Reaction / Comment(s): NEVER HAD BLOOD TRANSFUSION Past Psychological History: ADD/ADHD Smoking Status: Current every day smoker Past Alcohol Use History: Occasional Past Drug Use History: Marijuana - Past Family History Mother Family Medical History: COPD Father Family Medical History: Prostate Disorder General Exam - General Exam Comments Initial Comments: 44 year old female, no distress. Limitations: no limitations General appearance: alert, in no apparent distress Head exam: Present: atraumatic, normocephalic, normal inspection Eye exam: Present: normal appearance, PERRL, EOMI. Absent: scleral icterus, conjunctival injection, periorbital swelling ENT exam: Present: normal exam, mucous membranes moist Neck exam: Present: normal inspection. Absent: tenderness, meningismus, lymphadenopathy Respiratory exam: Present: normal lung sounds bilaterally. Absent: respiratory distress, wheezes, rales, rhonchi, stridor Cardiovascular Exam: Present: regular rate, normal rhythm, normal heart sounds. Absent: systolic murmur, diastolic murmur, rubs, gallop, clicks GI/Abdominal exam: Present: soft, normal bowel sounds. Absent: distended, tenderness, guarding, rebound, rigid External exam: Present: erythema, swelling (bartholin gland asbscess on L labia). Absent: normal external exam Extremities exam: Present: normal inspection, full ROM, normal capillary refill. Absent: tenderness, pedal edema, joint swelling, calf tenderness Back exam: Present: normal inspection Neurological exam: Present: alert, oriented X3, CN II-XII intact Psychiatric exam: Present: normal affect, normal mood Skin exam: Present: warm, dry, intact, normal color. Absent: rash Course Vital Signs 11/28/19 11/28/19 12:34 14:18 Temperature 97.9 F 98.2 F Pulse Rate 68 67 Respiratory 18 16 Rate Blood Pressure 147/88 144/85 O2 Sat by Pulse 100 95 Oximetry Procedures - [place] Protocol (Time Out) Procedure Performed:: Incision and drainage of bartholin cyst\abscess Performing Provider: Jonna Martinez Nurse: Aleshia Acosta Timeout Date: 11/28/19 Timeout Time: 13:35 Patient Identification (2 identifiers required): Chart, Verbal, Arm Band, Name, Birthdate Patient/Legal Face Worker has Confirmed: Identity, Site, Procedure, Consent Site: Vagina Site Marked: Yes Site Verified With Patient/Guardian: Yes Final Confirmation: Procedure, Site - Incision & Drainage Indication: bartholin gland abscess Site: vulva/vagina Size (cm): 2 Anesthetic Used: lidocaine 1% Amount (mLs): 4 I&D Cleaning Method: Iodine Sterile Field Used?: Yes Scalpel Used: #11 Needle Aspiration Performed?: Yes Irrigation Performed?: Yes I&D Drainage Obtained: Pus, Blood Packing: Other (word catheter) Culture Obtained?: Yes Patient Tolerated Procedure: well, no complications Medical Decision Making - Medical Decision Making 44 year old female with bartholin gland abscess. Pt had incision and drainage and had word catheter placed. Pt tolerated procedure well. 10 cc of pus removed. Pt had aerobic wound culture. Patient given Rx for antibiotic and advised close OBGYN follow up. Disposition Clinical Impression: Bartholin's gland abscess Disposition: HOME SELF-CARE Condition: Good Instructions (If sedation given, give patient instructions): Bartholin Cyst (ED), Incision and Drainage (ED) Additional Instructions: Patient advised to follow-up with MECHANICAL SPECIALIST. Await for wound culture for further instruction on antibiotic. Patient should do sits baths for the first few days sitting in warm water. Patient advised to follow-up with your primary care or MECHANICAL SPECIALIST in 2 days to have the Word catheter removed. Prescriptions: Sulfamethox-Tmp 800-160Mg [Bactrim DS 800-160 mg] 2 tab PO Q12HR #40 tab Acetaminophen-Codeine 300-30mg [Tylenol w/codeine #3] 1 tab PO Q6H PRN 3 Days #12 tablet PRN Reason: Pain Is patient prescribed a controlled substance at d/c from ED?: No Referrals: Raymond Lebron MD [Primary Care Provider] - 1-2 days Time of Disposition: 14:06
[2019-11-28 14:23] VITALS: BP 144/85; PULSE 67; RESP 16; TEMP 98.2
== END 2019-11-28 14:23 | disposition home or self-care (01) ==
LOC: EC 12:27
DX: N75.1 Abscess of Bartholin's gland (principal); F17.200 Nicotine dependence, unspecified, uncomplicated; F90.9 Attention-deficit hyperactivity disorder, unspecified type; Z79.899 Other long term (current) drug therapy; Z88.1 Allergy status to other antibiotic agents; Z88.8 Allergy status to other drugs, medicaments and biological substances
CPT/HCPCS: 87070; 87205; 99283; 56420; J2001

== ENCOUNTER 2020-01-02 15:58 | Emergency (ER) | payer OTHER ==
[2020-01-02 16:14] VITALS: BP 145/88; PULSE 81; RESP 16; TEMP 98.4
[2020-01-02] MEDS ORDERED: SODIUM CHLORIDE 0.9% 1,000 ML IV ONE (16:47)
[2020-01-02] MEDS ORDERED: LIDOCAINE 1% INJ 10MG/ML (20 ML MDV) SQ ONE (16:49)
--- NOTE | 2020-01-02 17:12 | ED ---
Female Urogenital HPI - General Chief complaint: Vaginal Bleeding Stated complaint: FEMALE Time Seen by Provider: 01/02/20 16:19 Source: patient, RN notes reviewed, old records reviewed Mode of arrival: ambulatory Limitations: no limitations - History of Present Illness Initial comments: Patient is a 44-year-old female who presents emergency Department today with complaint of heavy vaginal bleeding for the past 2 days. She reports that she's been going through a pad an hour. Patient's not on blood thinners. She denies any nausea or vomiting. She also states that she's had history of Bartholin gland cyst and has a current cyst that has flared up within the past few days. Patient states that she has had these multiple times before and had them drained. Patient states that she called her ALARM SERVICE TECHNICIAN told her to come to the ER for follow-up for of heavy vaginal bleeding. Patient denies any chest pain shortness breath nausea vomiting or dizziness or lightheadedness. Last Menstrual Period: 11/23/19 - Related Data Home Medications Medication Instructions Recorded Confirmed Dextroamphetamine/Amphetamine 30 mg PO DAILY 02/17/18 11/28/19 [Adderall Xr] Bactrim (Unknown Dose) 1 tab PO ONCE 11/28/19 11/28/19 Previous Rx's Medication Instructions Recorded Acetaminophen-Codeine 300-30mg 1 tab PO Q6H PRN 3 Days #12 tablet 11/28/19 [Tylenol w/codeine #3] Sulfamethox-Tmp 800-160Mg [Bactrim 2 tab PO Q12HR #40 tab 11/28/19 DS 800-160 mg] Sulfamethox-Tmp 800-160Mg [Bactrim 1 tab PO BID #20 tab 01/02/20 DS 800-160 mg] Allergies Allergy/AdvReac Type Severity Reaction Status Date / Time ceftriaxone [From Rocephin] Allergy Unknown Verified 01/02/20 16:11 nitrofurantoin Allergy Unknown Verified 01/02/20 16:11 [From Macrobid] Review of Systems ROS Statement: Those systems with pertinent positive or pertinent negative responses have been documented in the HPI. ROS Other: All systems not noted in ROS Statement are negative. Past Medical History Past Medical History: No Reported History History of Any Multi-Drug Resistant Organisms: None Reported Past Surgical History: Section Additional Past Anesthesia/Blood Transfusion Reaction / Comment(s): NEVER HAD BLOOD TRANSFUSION Past Psychological History: ADD/ADHD Smoking Status: Current every day smoker Past Alcohol Use History: Occasional Past Drug Use History: Marijuana - Past Family History Mother Family Medical History: COPD Father Family Medical History: Prostate Disorder General Exam - General Exam Comments Initial Comments: 44 year old female, no distress. Limitations: no limitations General appearance: alert, in no apparent distress Head exam: Present: atraumatic, normocephalic, normal inspection Eye exam: Present: normal appearance, PERRL, EOMI. Absent: scleral icterus, conjunctival injection, periorbital swelling ENT exam: Present: normal exam, mucous membranes moist Neck exam: Present: normal inspection. Absent: tenderness, meningismus, lymphadenopathy Respiratory exam: Present: normal lung sounds bilaterally. Absent: respiratory distress, wheezes, rales, rhonchi, stridor Cardiovascular Exam: Present: regular rate, normal rhythm, normal heart sounds. Absent: systolic murmur, diastolic murmur, rubs, gallop, clicks GI/Abdominal exam: Present: soft, normal bowel sounds. Absent: distended, tenderness, guarding, rebound, rigid External exam: Present: other (Pt has bartholin gland cyst on L labia ). Abs ent: normal external exam Speculum exam: Present: vaginal bleeding Extremities exam: Present: normal inspection, full ROM, normal capillary refill. Absent: tenderness, pedal edema, joint swelling, calf tenderness Back exam: Present: normal inspection Neurological exam: Present: alert, oriented X3, CN II-XII intact Psychiatric exam: Present: normal affect, normal mood Skin exam: Present: warm, dry, intact, normal color. Absent: rash Course Vital Signs 01/02/20 16:12 Temperature 98.4 F Pulse Rate 81 Respiratory 16 Rate Blood Pressure 145/88 O2 Sat by Pulse 99 Oximetry Procedures - [place] Protocol (Time Out) Procedure Performed:: Bartholin gland abscess drainage Performing Provider: Jonna Martinez Timeout Date: 01/02/20 Timeout Time: 18:00 Patient Identification (2 identifiers required): Chart, Verbal Patient/Legal Crm Technical Lead has Confirmed: Identity, Site Site: L labia Site Marked: Yes Final Confirmation: Procedure, Site - Incision & Drainage Indication: L bartholin gland abscess Site: vulva/vagina Size (cm): 4 Anesthetic Used: lidocaine 1% Amount (mLs): 2 Sterile Field Used?: Yes Scalpel Used: #11 I&D Drainage Obtained: Pus, Blood Packing: Other (Word Catheter) Culture Obtained?: No Complications: bleeding Patient Tolerated Procedure: well Medical Decision Making - Medical Decision Making 44 year old female presents today for heavy vaginal bleeding for 2 days. Hemoglobin is stable. Pt has bartholin gland abscess. Pt had incision and drainage and Aquino catheter placed. Discussed pt on antibiotics. Discussed return parameters and OBGYN follow up. - Lab Data Result diagrams: 01/02/20 17:04 01/02/20 17:04 Lab Results 01/02/20 01/02/20 01/02/20 Range/Units 17:04 17:04 17:04 WBC 12.9 H (3.8-10.6) k/uL RBC 4.20 (3.80-5.40) m/uL Hgb 13.4 (11.4-16.0) gm/dL Hct 41.6 (34.0-46.0) % MCV 98.9 (80.0-100.0) fL MCH 31.9 (25.0-35.0) pg MCHC 32.3 (31.0-37.0) g/dL RDW 13.4 (11.5-15.5) % Plt Count 231 (150-450) k/uL Neutrophils % 72 % Lymphocytes % 19 % Monocytes % 5 % Eosinophils % 2 % Basophils % 0 % Neutrophils # 9.4 H (1.3-7.7) k/uL Lymphocytes # 2.5 (1.0-4.8) k/uL Monocytes # 0.7 (0-1.0) k/uL Eosinophils # 0.2 (0-0.7) k/uL Basophils # 0.0 (0-0.2) k/uL Sodium 135 L (137-145) mmol/L Potassium 4.1 (3.5-5.1) mmol/L Chloride 105 (98-107) mmol/L Carbon Dioxide 25 (22-30) mmol/L Anion Gap 5 mmol/L BUN 16 (7-17) mg/dL Creatinine 0.91 (0.52-1.04) mg/dL Est GFR (CKD-EPI)AfAm 90 (>60 ml/min/1.73 sqM) Est GFR (CKD-EPI)NonAf 78 (>60 ml/min/1.73 sqM) Glucose 113 H (74-99) mg/dL Calcium 9.2 (8.4-10.2) mg/dL Urine Color Urine Appearance (Clear) Urine pH (5.0-8.0) Ur Specific [place] (1.001-1.035) Urine Protein (Negative) Urine Glucose (UA) (Negative) Urine Ketones (Negative) Urine Blood (Negative) Urine Nitrite (Negative) Urine Bilirubin (Negative) Urine Urobilinogen (<2.0) mg/dL Ur Leukocyte Esterase (Negative) Urine RBC (0-5) /hpf Urine WBC (0-5) /hpf Urine HCG, Qual Not Detected (Not Detectd) 01/02/20 Range/Units 17:04 WBC (3.8-10.6) k/uL RBC (3.80-5.40) m/uL Hgb (11.4-16.0) gm/dL Hct (34.0-46.0) % MCV (80.0-100.0) fL MCH (25.0-35.0) pg MCHC (31.0-37.0) g/dL RDW (11.5-15.5) % Plt Count (150-450) k/uL Neutrophils % % Lymphocytes % % Monocytes % % Eosinophils % % Basophils % % Neutrophils # (1.3-7.7) k/uL Lymphocytes # (1.0-4.8) k/uL Monocytes # (0-1.0) k/uL Eosinophils # (0-0.7) k/uL Basophils # (0-0.2) k/uL Sodium (137-145) mmol/L Potassium (3.5-5.1) mmol/L Chloride (98-107) mmol/L Carbon Dioxide (22-30) mmol/L Anion Gap mmol/L BUN (7-17) mg/dL Creatinine (0.52-1.04) mg/dL Est GFR (CKD-EPI)AfAm (>60 ml/min/1.73 sqM) Est GFR (CKD-EPI)NonAf (>60 ml/min/1.73 sqM) Glucose (74-99) mg/dL Calcium (8.4-10.2) mg/dL Urine Color Light Red Urine Appearance Clear (Clear) Urine pH 5.5 (5.0-8.0) Ur Specific [place] 1.018 (1.001-1.035) Urine Protein Trace H (Negative) Urine Glucose (UA) Negative (Negative) Urine Ketones Negative (Negative) Urine Blood Large H (Negative) Urine Nitrite Negative (Negative) Urine Bilirubin Negative (Negative) Urine Urobilinogen <2.0 (<2.0) mg/dL Ur Leukocyte Esterase Trace H (Negative) Urine RBC >182 H (0-5) /hpf Urine WBC 5 (0-5) /hpf Urine HCG, Qual (Not Detectd) Disposition Clinical Impression: Vaginal bleeding, Bartholin's gland abscess Disposition: HOME SELF-CARE Condition: Good Instructions (If sedation given, give patient instructions): Abscess (ED) Additional Instructions: Follow up with ALARM SERVICE TECHNICIAN. Return to the ED if any alarming signs or symptoms occur. Prescriptions: Sulfamethox-Tmp 800-160Mg [Bactrim DS 800-160 mg] 1 tab PO BID #20 tab Is patient prescribed a controlled substance at d/c from ED?: No Referrals: Raymond Lebron MD [Primary Care Provider] - 1-2 days Time of Disposition: 18:17
[2020-01-02 17:22] LABS: Basophils % (A) 0 %; Eosinophils # (A) 0.2 k/uL (0-0.7); Eosinophils % (A) 2 %; HCT 41.6 % (34.0-46.0); HGB 13.4 gm/dL (11.4-16.0); Lymphocytes # (A) 2.5 k/uL (1.0-4.8); Lymphocytes % (A) 19 %; MCH 31.9 pg (25.0-35.0); MCHC 32.3 g/dL (31.0-37.0); MCV 98.9 fL (80.0-100.0); Mean Platelet Volume 7.4; Monocytes # (A) 0.7 k/uL (0-1.0); Monocytes % (A) 5 %; Neutrophils # (A) 9.4 k/uL (1.3-7.7); Neutrophils % (A) 72 %; Platelet Count 231 k/uL (150-450); RDW 13.4 % (11.5-15.5); WBC 12.9 k/uL (3.8-10.6)
[2020-01-02 17:28] LABS: Appearance,Urine Clear (Clear); Bilirubin,Urine Negative (Negative); Blood,Urine Large (Negative); Color,Urine Light Red; Glucose,Urine (UA) Negative (Negative); Ketones,Urine Negative (Negative); Leukocyte Esterase,Urine Trace (Negative); Nitrite,Urine Negative (Negative); PH, Urine 5.5 (5.0-8.0); Protein,Urine Trace (Negative); RBC,Urine >182 /hpf (0-5); Specific Gravity,Urine 1.018 (1.001-1.035); Urobilinogen,Urine <2.0 mg/dL (<2.0); WBC,Urine 5 /hpf (0-5)
[2020-01-02 17:30] LABS: Calcium 9.2 mg/dL (8.4-10.2); Potassium 4.1 mmol/L (3.5-5.1)
== END 2020-01-02 18:42 | disposition home or self-care (01) ==
LOC: EC 15:58
DX: N75.1 Abscess of Bartholin's gland (principal); N93.9 Abnormal uterine and vaginal bleeding, unspecified; F90.9 Attention-deficit hyperactivity disorder, unspecified type; F17.200 Nicotine dependence, unspecified, uncomplicated; Z79.899 Other long term (current) drug therapy; Z98.890 Other specified postprocedural states
CPT/HCPCS: 99284; 56420; 96360; 36415; 80048; 85025; 81001; 81025; J2001

== ENCOUNTER 2021-08-19 16:50 | Emergency (ER) | payer OTHER ==
[2021-08-19 18:43] VITALS: BP 130/77; PULSE 83; RESP 18; TEMP 97.9
--- NOTE | 2021-08-19 22:51 | ED ---
General Adult HPI - General Chief complaint: Skin/Abscess/Foreign Body Stated complaint: Cyst R side Genital Area Time Seen by Provider: 08/19/21 22:30 Source: patient, family, RN notes reviewed, old records reviewed Mode of arrival: ambulatory Limitations: no limitations - History of Present Illness Initial comments: 46-year-old female presents to the emergency room with right labial abscess. Patient states that she seen Dr. Raymond who drained it on . She states that the incision closed and it became more swollen. She states while waiting in the emergency room it ruptured and started to drain on its own. She states that she does have a history of labial abscesses. She did take some Bactrim that she had left over from a previous I&D. She denies any fevers, no nausea, vomiting or diarrhea. -: days(s) (6) Location: genitals (right labia) Severity scale (1-10): 7 Consistency: constant Improves with: other (drainage) Worsens with: none Associated Symptoms: denies other symptoms Treatments Prior to Arrival: other (i&d , ) - Related Data Home Medications Medication Instructions Recorded Confirmed Dextroamphetamine/Amphetamine 30 mg PO DAILY 02/17/18 11/28/19 [Adderall Xr] Bactrim (Unknown Dose) 1 tab PO ONCE 11/28/19 11/28/19 Previous Rx's Medication Instructions Recorded Acetaminophen-Codeine 300-30mg 1 tab PO Q6H PRN 3 Days #12 tablet 11/28/19 [Tylenol w/codeine #3] Sulfamethox-Tmp 800-160Mg [Bactrim 2 tab PO Q12HR #40 tab 11/28/19 DS 800-160 mg] Sulfamethox-Tmp 800-160Mg [Bactrim 1 tab PO BID #20 tab 08/19/21 DS 800-160 mg] Sulfamethox-Tmp 800-160Mg [Bactrim 1 tab PO Q12HR 5 Days #10 tab 08/19/21 DS 800-160 mg] Allergies Allergy/AdvReac Type Severity Reaction Status Date / Time ceftriaxone [From Rocephin] Allergy Unknown Verified 08/19/21 18:43 nitrofurantoin Allergy Unknown Verified 08/19/21 18:43 [From Macrobid] Review of Systems ROS Statement: Those systems with pertinent positive or pertinent negative responses have been documented in the HPI. ROS Other: All systems not noted in ROS Statement are negative. Past Medical History Past Medical History: No Reported History History of Any Multi-Drug Resistant Organisms: None Reported Past Surgical History: Section Additional Past Anesthesia/Blood Transfusion Reaction / Comment(s): NEVER HAD BLOOD TRANSFUSION Past Psychological History: ADD/ADHD Smoking Status: Current every day smoker Past Alcohol Use History: Occasional Past Drug Use History: Marijuana - Past Family History Mother Family Medical History: COPD Father Family Medical History: Prostate Disorder General Exam Limitations: no limitations General appearance: alert, in no apparent distress Eye exam: Present: normal appearance Respiratory exam: Absent: respiratory distress, accessory muscle use Cardiovascular Exam: Present: regular rate External exam: Present: swelling, other (Right labia majora abscess with approximately 1 cm incision draining purulent fluid). Absent: erythema, ecchymosis Extremities exam: Present: normal capillary refill. Absent: pedal edema Neurological exam: Present: alert, oriented X3 Psychiatric exam: Present: normal affect, normal mood Skin exam: Present: warm, dry, normal color. Absent: cyanosis, diaphoretic, petechiae, pallor Course Vital Signs 08/19/21 18:38 Temperature 97.9 F Pulse Rate 83 Respiratory 18 Rate Blood Pressure 130/77 O2 Sat by Pulse 100 Oximetry Medical Decision Making - Medical Decision Making Abscess spontaneously draining from previous incision and drainage done on by Dr. Raymond. Culture was obtained and sent. Case discussed with Dr. Cross who recommended Bactrim for discharge. Patient was instructed to follow-up with her primary care doctor this week return to the emergency room with any new or concerning symptoms including fevers or increased pain and swelling. She was also directed to use sitz bath's to promote drainage. Patient is agreeable to this plan of care. They will return to the emergency room with any new or concerning symptoms including fever or increased pain. Disposition Clinical Impression: Labial abscess Disposition: HOME SELF-CARE Condition: Good Instructions (If sedation given, give patient instructions): Abscess (ED), Sitz Bath (DC) Additional Instructions: Use sitz baths 2-3 times a day for 10-15 minutes. This will help keep the area clean and promote drainage. Take antibiotics as prescribed. Follow-up with the primary care doctor this week. Prescriptions: Sulfamethox-Tmp 800-160Mg [Bactrim DS 800-160 mg] 1 tab PO Q12HR 5 Days #10 tab Sulfamethox-Tmp 800-160Mg [Bactrim DS 800-160 mg] 1 tab PO BID #20 tab Is patient prescribed a controlled substance at d/c from ED?: No Referrals: Zeke Pittman MD [Primary Care Provider] - 1-2 days Time of Disposition: 22:47
== END 2021-08-19 23:15 | disposition home or self-care (01) ==
LOC: EC 16:50
DX: N76.4 Abscess of vulva (principal); F17.200 Nicotine dependence, unspecified, uncomplicated; F12.90 Cannabis use, unspecified, uncomplicated
CPT/HCPCS: 87070; 87205; 99283

== ENCOUNTER → 2022-07-06 | Outpatient (CLI) | payer OTHER | LOC: CPPFTMAIN 13:11 | PROVIDERS: ATTEND Internal Medicine | DX: J45.909 Unspecified asthma, uncomplicated (principal); Z88.8 Allergy status to other drugs, medicaments and biological substances; Z88.1 Allergy status to other antibiotic agents; F17.200 Nicotine dependence, unspecified, uncomplicated | CPT/HCPCS: 94060; 94726; 94729 ==

== ENCOUNTER 2023-02-21 10:53 | Emergency (ER) | payer OTHER ==
[2023-02-21 11:07] VITALS: BP 138/86; PULSE 81; RESP 20; TEMP 98.2
[2023-02-21] MEDS ORDERED: AMOXIC-POT CLAV 875-125MG 1 EACH TAB PO STA (11:08)
--- NOTE | 2023-02-21 11:11 | ED ---
ENT HPI - General Chief complaint: Dental/Oral Stated complaint: Dental Pain Time Seen by Provider: 02/21/23 10:58 Source: patient, RN notes reviewed Mode of arrival: ambulatory Limitations: no limitations - History of Present Illness Initial comments: 47-year-old female presents emergency Department with chief complaint of left- sided dental pain, abscess. Patient states that she's had some issues with this but usually pops in front is fine. Patient states that this was just ruptured that she still has left-sided facial swelling, discomfort. This is controlled by Motrin. Denies any difficulty swallowing no pain with any ocular movement, headache or neck pain. - Related Data Home Medications Medication Instructions Recorded Confirmed Dextroamphetamine/Amphetamine 30 mg PO DAILY 02/17/18 11/28/19 [Adderall Xr] Bactrim (Unknown Dose) 1 tab PO ONCE 11/28/19 11/28/19 Previous Rx's Medication Instructions Recorded Acetaminophen-Codeine 300-30mg 1 tab PO Q6H PRN 3 Days #12 tablet 11/28/19 [Tylenol w/codeine #3] Sulfamethox-Tmp 800-160Mg [Bactrim 2 tab PO Q12HR #40 tab 11/28/19 DS 800-160 mg] Sulfamethox-Tmp 800-160Mg [Bactrim 1 tab PO BID #20 tab 08/19/21 DS 800-160 mg] Sulfamethox-Tmp 800-160Mg [Bactrim 1 tab PO Q12HR 5 Days #10 tab 08/19/21 DS 800-160 mg] Amoxic-Pot Clav 875-125Mg 1 tab PO Q12HR #20 tab 02/21/23 [Augmentin 875-125] Allergies Allergy/AdvReac Type Severity Reaction Status Date / Time ceftriaxone [From Rocephin] Allergy Unknown Verified 02/21/23 10:56 nitrofurantoin Allergy Unknown Verified 02/21/23 10:56 [From Macrobid] Review of Systems ROS Statement: Those systems with pertinent positive or pertinent negative responses have been documented in the HPI. ROS Other: All systems not noted in ROS Statement are negative. Past Medical History Past Medical History: No Reported History History of Any Multi-Drug Resistant Organisms: None Reported Past Surgical History: Section Additional Past Anesthesia/Blood Transfusion Reaction / Comment(s): NEVER HAD BLOOD TRANSFUSION Past Psychological History: ADD/ADHD Smoking Status: Current every day smoker Past Alcohol Use History: Occasional Past Drug Use History: Marijuana - Past Family History Mother Family Medical History: COPD Father Family Medical History: Prostate Disorder General Exam Limitations: no limitations General appearance: alert, in no apparent distress Head exam: Present: atraumatic, normocephalic, normal inspection Eye exam: Present: normal appearance, PERRL, EOMI. Absent: scleral icterus, conjunctival injection, periorbital swelling ENT exam: Present: mucous membranes moist. Absent: normal oropharynx (Left- sided facial swelling, there is draining abscess the left upper region) Neck exam: Present: normal inspection, full ROM. Absent: tenderness, meningismus, lymphadenopathy Respiratory exam: Present: normal lung sounds bilaterally. Absent: respiratory distress, wheezes, rales, rhonchi, stridor Cardiovascular Exam: Present: regular rate, normal rhythm, normal heart sounds. Absent: systolic murmur, diastolic murmur, rubs, gallop, clicks Course Vital Signs 02/21/23 10:54 Temperature 98.2 F Pulse Rate 81 Respiratory 20 Rate Blood Pressure 138/86 O2 Sat by Pulse 99 Oximetry Medical Decision Making - Medical Decision Making Was pt. sent in by a medical professional or institution (, PA, ELECTRICIAN REFINERY, urgent care, hospital, or half-way...) When possible be specific @ -No Did you speak to anyone other than the patient for history (EMS, parent, family, police, friend...)? What history was obtained from this source @ -No Did you review nursing and triage notes (agree or disagree)? Why? @ -I reviewed and agree with nursing and triage notes Were old charts reviewed (outside hosp., previous admission, EMS record, old EKG, old radiological studies, urgent care reports/EKG's, half-way records)? Report findings @ -No old charts were reviewed Differential Diagnosis (chest pain, altered mental status, abdominal pain women, abdominal pain men, vaginal bleeding, weakness, fever, dyspnea, syncope, headache, dizziness, GI bleed, back pain, seizure, CVA, palpatations, mental health, musculoskeletal)? @ -Dental abscess, dental infection EKG interpreted by me (3pts min.). @ -None X-rays interpreted by me (1pt min.). @ -None done CT interpreted by me (1pt min.). @ -None done U/S interpreted by me (1pt. min.). @ -None done What testing was considered but not performed or refused? (CT, X-rays, U/S, labs)? Why? @ -None What meds were considered but not given or refused? Why? @ -None Did you discuss the management of the patient with other professionals (professionals i.e. DrDana, PA, ELECTRICIAN REFINERY, lab, RT, psych nurse, bilingual social worker, plating operator, teacher, air crew officer, rehabilitation caseworker)? Give summary @ -No Was smoking cessation discussed for >3mins.? @ -No Was critical care preformed (if so, how long)? @ -No Were there social determinants of health that impacted care today? How? (Homelessness, low income, unemployed, alcoholism, drug addiction, transportation, low edu. Level, literacy, decrease access to med. care, nursing home, rehab)? @ -No Was there de-escalation of care discussed even if they declined (Discuss DNR or withdrawal of care, Hospice)? DNR status @ -No What co-morbidities impacted this encounter? (DM, HTN, Smoking, COPD, CAD, Cancer, CVA, ARF, Chemo, Hep., AIDS, mental health diagnosis, sleep apnea, morbid obesity)? @ -None Was patient admitted / discharged? Hospital course, mention meds given and route, prescriptions, significant lab abnormalities, going to OR and other pertinent info. @ -Discharge patient has a draining left sided dental abscess. Patient was started on Augmentin. Patient will follow-up with dentist return parameters were discussed. Undiagnosed new problem with uncertain prognosis? @ -No Drug Therapy requiring intensive monitoring for toxicity (Heparin, Nitro, Insulin, Cardizem)? @ -No Were any procedures done? @ -No Diagnosis/symptom? @ -Dental abscess Acute, or Chronic, or Acute on Chronic? @ -Acute Uncomplicated (without systemic symptoms) or Complicated (systemic symptoms)? @ -Uncomplicated Side effects of treatment? @ -No Exacerbation, Progression, or Severe Exacerbation? @ -No Poses a threat to life or bodily function? How? (Chest pain, [place], [place], pneumonia, PE, COPD, DKA, ARF, appy, cholecystitis, CVA, Diverticulitis, Homicidal, Suicidal, threat to staff... and all critical care pts) @ -No Disposition Clinical Impression: Dental abscess Disposition: HOME SELF-CARE Condition: Stable Instructions (If sedation given, give patient instructions): Dental Abscess (ED) Additional Instructions: Please return to the Emergency Department if symptoms worsen or any other concerns. Prescriptions: Amoxic-Pot Clav 875-125Mg [Augmentin 875-125] 1 tab PO Q12HR #20 tab Is patient prescribed a controlled substance at d/c from ED?: No Referrals: Zeke Pittman MD [Primary Care Provider] - 1-2 days Time of Disposition: 11:11
== END 2023-02-21 11:50 | disposition home or self-care (01) ==
LOC: EC 10:53
DX: K04.7 Periapical abscess without sinus (principal); F12.90 Cannabis use, unspecified, uncomplicated; F17.200 Nicotine dependence, unspecified, uncomplicated; Z88.1 Allergy status to other antibiotic agents; Z88.8 Allergy status to other drugs, medicaments and biological substances
CPT/HCPCS: 99283